=== PATIENT | female | born 1970 | race Caucasian/White ===

== ENCOUNTER 2024-02-26 16:47 | Emergency (ER) | payer SELFPAY ==
[~2024-02-26] VITALS: Ht 167.6 cm; Wt 70.5 kg
[2024-02-26 16:56] VITALS: BP 132/56; PULSE 62; RESP 16; TEMP 97.6; O2SAT 100
== END 2024-02-26 19:00 | disposition left against medical advice (07) ==
LOC: MED 16:47
DX: H92.02 Otalgia, left ear (principal); Z53.21 Procedure and treatment not carried out due to patient leaving prior to being seen by health care provider

== ENCOUNTER 2024-03-02 12:21 | Emergency (ER) | payer MEDICAID ==
[~2024-03-02] VITALS: Ht 167.6 cm; Wt 70.9 kg
[2024-03-02 12:39] VITALS: BP 118/46; PULSE 66; RESP 16; TEMP 97.6; O2SAT 100
[2024-03-02] MEDS: CARBAMIDE PEROXIDE 6.5% OT 15 ML BTL OT ONE (13:35)
[2024-03-02] MEDS: IBUPROFEN 600 MG TAB PO ONE (13:41)
[2024-03-02 15:00] VITALS: BP 125/60; PULSE 66; RESP 16; TEMP 36.44736; O2SAT 100
== END 2024-03-02 14:58 | disposition home or self-care (01) ==
LOC: MED 12:21
DX: H61.22 Impacted cerumen, left ear (principal); Z98.890 Other specified postprocedural states; Z88.6 Allergy status to analgesic agent
CPT/HCPCS: 99282